=== PATIENT | male | born 1950 | race Caucasian/White ===

== ENCOUNTER 2018-12-28 23:52 | Emergency (ER) | payer OTHER, MEDICAID ==
[~2018-12-28] VITALS: Ht 165.1 cm; Wt 70.3 kg
[2018-12-28 23:57] VITALS: BP 138/82
--- NOTE | 2018-12-28 23:58 | NUR ---
TO BED # 03 AMBULATORY
--- NOTE | 2018-12-29 00:14 | NUR ---
68 Y/O M BIB CAREGIVER REFERRAL FROM PCP DUE TO ABNORMAL LABS. DELAYED MENTATION AND NONVERBAL. PER CAREGIVER POTASSIUM WAS ELVEATED, GREATER THAN 6.2. PT PUT ON FULL MONITOR. NSR AND HR 90 NOTED. ERMD NOTIFIED. CAREGIVER AT BEDSIDE. ERMD NOTIFIED. WILL CONTINUE TO MONITOR.
[2018-12-29 01:18] LABS: HEMATOCRIT 45.6 % (36-52); HEMOGLOBIN 15.9 g/dL (12.0-18.0); RED BLOOD CELL COUNT(AUTO) 5.06 MIL/uL (4.20-6.10); WHITE BLOOD COUNT (AUTO) 10.3 K/uL (4.8-10.8)
[2018-12-29 01:19] LABS: BASOPHILS % (AUTO) 0.4 % (0.0-2.0); EOSINOPHILS # (AUTO) 0.3 K/uL (0-0.4); EOSINOPHILS % (AUTO) 3.4 % (0.0-4.0); LYMPHOCYTES # (AUTO) 4.2 K/uL (2.0-11.5); LYMPHOCYTES % (AUTO) 40.9 % (20.5-51.1); MEAN CORPUSCULAR HEMOGLOBIN 32 pg (27-31); MEAN CORPUSCULAR HGB CONC 35 g/dL (33-37); MONOCYTES # (AUTO) 0.9 K/uL (0.8-1.0); MONOCYTES % (AUTO) 8.4 % (1.7-9.3); NEUTROPHILS # (AUTO) 4.8 K/uL (1.8-7.7); NEUTROPHILS % (AUTO) 46.9 % (42.2-75.2); PLATELET COUNT (AUTO) 259 K/uL (140-450); RED CELL DISTRIBUTION WIDTH 13.6 % (11.6-13.7)
[2018-12-29 01:32] LABS: ANION GAP 15.5 (8-16); CARBON DIOXIDE 23.9 mmol/L (21-32); CREATININE 1.2 mg/dL (0.7-1.3); POTASSIUM 4.4 mmol/L (3.5-5.1)
[2018-12-29 01:38] LABS: ALBUMIN 3.9 g/dL (3.4-5.0); TOTAL BILIRUBIN 0.4 mg/dL (0.0-1.0)
[2018-12-29 02:05] VITALS: BP 138/75
--- NOTE | 2018-12-29 02:05 | NUR ---
Patient discharged with v/s stable. Written and verbal after care instructions given and explained. Patient verbalized understanding. Ambulatory, escorted by caregiver. All questions addressed prior to discharge. Advised to follow up with PMD.
== END 2018-12-29 02:05 | disposition home or self-care (01) ==
LOC: MED 23:52
DX: R79.9 Abnormal finding of blood chemistry, unspecified (principal); R45.1 Restlessness and agitation; Z88.0 Allergy status to penicillin
CPT/HCPCS: 36415; 80053; 82550; 85025; 99283